=== PATIENT | female | born 1980 | race Caucasian/White ===

== ENCOUNTER → 2016-07-02 | Outpatient (CLI) | payer BC ==
[~2016-07-02] MED LIST: CETI10TA84 PO; CITA20TA9 PO; LABE200T24 PO; MAGN400T6 PO; METH250T21 PO; MTR600X PO; OXYC-57 PO; PRENTAB26 PO; PRLSR20 PO
[2016-07-02 13:16] LABS: URINE TOTAL PROTEIN 7.8 mg/dl (0-11.9)
[2016-07-02 13:33] LABS: CREATININE 0.6 mg/dl (0.6-1.2); URINE TOTAL PROTEIN CALC 140.4 mg/24 hr (0-149.1)
== END | disposition home or self-care (01) ==
LOC: C.LAB1850 12:08
PROVIDERS: ATTEND Obstetrics & Gynecology
DX: O16.2 Unspecified maternal hypertension, second trimester (principal)

== ENCOUNTER → 2016-07-11 | Outpatient (CLI) | payer BC ==
[2016-07-11 18:09] LABS: URINE APPEARANCE CLEAR (CLEAR); URINE BILIRUBIN NEG (NEG); URINE COLOR YELLOW; URINE EPITHELIAL CELL AUTO >30 /lpf (0-5); URINE NITRITE NEG (NEG); URINE PH 6.5 (4.5-7.5); URINE SPECIFIC GRAVITY 1.014 (1.000-1.030); UROBILINOGEN NEG (NEG)
[2016-07-11 18:12] LABS: MANUAL MICROSCOPIC REQUIRED? NO; REVIEW REQ? NO
== END | disposition home or self-care (01) ==
LOC: C.LABSPEC 17:30
PROVIDERS: ATTEND Obstetrics & Gynecology
DX: O16.3 Unspecified maternal hypertension, third trimester (principal)

== ENCOUNTER → 2016-07-25 | Outpatient (CLI) | payer BC ==
[2016-07-25 15:40] LABS: HEMATOCRIT 34.4 % (37-47)
[2016-07-25 17:20] LABS: GTGD 50 Grams
== END | disposition home or self-care (01) ==
LOC: C.LAB1850 13:52
PROVIDERS: ATTEND Obstetrics & Gynecology
DX: O16.3 Unspecified maternal hypertension, third trimester (principal); Z3A.00 Weeks of gestation of pregnancy not specified

== ENCOUNTER → 2016-08-02 | Outpatient (CLI) | payer BC | END | disposition home or self-care (01) | LOC: C.LAB1850 08:35 | PROVIDERS: ATTEND Obstetrics & Gynecology | DX: O28.9 Unspecified abnormal findings on antenatal screening of mother (principal); Z3A.00 Weeks of gestation of pregnancy not specified ==

== ENCOUNTER → 2016-09-12 | Outpatient (CLI) | payer BC | END | disposition home or self-care (01) | LOC: C.LABSPEC 17:27 | PROVIDERS: ATTEND Obstetrics & Gynecology | DX: O09.523 Supervision of elderly multigravida, third trimester (principal) ==

== ENCOUNTER 2016-09-28 13:08 | Outpatient (CLI) | payer BC ==
[~2016-09-28] VITALS: Ht 160 cm; Wt 126.0 kg
[~2016-09-28 13:08] MED LIST changes: -CETI10TA84 PO; -CITA20TA9 PO; -MAGN400T6 PO; -METH250T21 PO; -MTR600X PO; -OXYC-57 PO; -PRLSR20 PO
[2016-09-28] MEDS ORDERED: CITA20TA9 PO (14:46)
[2016-09-28 14:51] LABS: BASO % 0.2 %; BASO ABS # 0.02 K/uL (0-0.2); HEMATOCRIT 36.7 % (37-47); IG% 1.2 %; LYMPH % 19.8 %; LYMPH ABS # 1.95 K/uL (1.2-3.4); MEAN CELL VOLUME 82.5 fL (80-100); MEAN CORPUSCULAR HEMOGLOBIN 27.4 pg (25-34); MEAN PLATELET VOLUME 10.4 fL (7.4-10.4); MONO % 5.5 %; NEUT % 72.3 %; PLATELET COUNT 354 K/uL (130-400); RED BLOOD COUNT 4.45 M/uL (4.2-5.4); WHITE BLOOD COUNT 9.86 K/uL (4.8-10.8)
[2016-09-28 14:59] LABS: INR 0.9 (0.9-1.1); PARTIAL THROMBOPLASTIN RATIO 1.2; PROTHROMBIN TIME (PATIENT) 10.1 SECONDS (9.0-12.0)
[2016-09-28] MEDS ORDERED: METH250T21 PO (15:07)
[2016-09-28] MEDS ORDERED: MAGN400T6 PO (15:08)
[2016-09-28] MEDS ORDERED: CETI10TA84 PO (15:08)
[2016-09-28] MEDS ORDERED: PRLSR20 PO (15:08)
[2016-09-28 15:09] LABS: ALKALINE PHOSPHATASE 169 U/L (45-117); ALT/SGPT 15 U/L (12-78); AST/SGOT 20 U/L (15-37); CREATININE 0.69 mg/dl (0.60-1.20); URIC ACID 4.5 mg/dl (2.6-7.2)
[2016-09-28 15:22] LABS: COMPLETE YES; MEAN CORPUSCULAR HGB CONC 33.2 g/dl (32-36)
[2016-09-28 15:32] VITALS: Ht 160 cm; Wt 126.0 kg
[2016-10-04] MEDS ORDERED: OXYC-57 PO (07:27)
[2016-10-04] MEDS ORDERED: MTR600X PO (07:27)
== END 2016-09-28 15:45 | disposition home or self-care (01) ==
LOC: C.OPB 13:08 → C.LD 13:09 → C.OPB 15:45
PROVIDERS: ATTEND Obstetrics & Gynecology
DX: O16.3 Unspecified maternal hypertension, third trimester (principal); Z3A.38 38 weeks gestation of pregnancy

== ENCOUNTER 2016-10-01 06:50 | Inpatient (IN) | payer BC ==
--- NOTE | 2016-09-21 18:06 | HISTORY & PHYSICAL EXAMINATION ---
DATE OF ADMISSION: 10/01/2016 PRINCIPAL DIAGNOSES: Intrauterine at 39 weeks, prior section, history of chronic hypertension, undesired fertility and multiparity. PRINCIPAL PROCEDURE: Repeat low transverse cervical section and bilateral tubal ligation. HISTORY OF PRESENT ILLNESS: The patient is a 36-year-old 2, para 1-0-0-1 white female, EDC of 10/06/2016 who presents at 39 weeks for repeat section. First section was done for failure to progress following induction of labor at 37 weeks for hypertension. The patient's blood pressure has been controlled on methyldopa 250 mg. She is now scheduled for repeat section. has also been complicated by an abnormal echo which was repeated in 4 weeks and then was found to be normal except for mild ductal construction. The patient is requesting bilateral tubal ligation for multiparity and undesired fertility. She understands the risks of this procedure and the risks of the . She is willing to proceed. PAST MEDICAL HISTORY: Hypertension, anxiety, and asthma. PAST SURGICAL HISTORY: Brimson teeth and a section in 2012 for failure to progress, delivery of a 6 pound 1 ounce infant. ALLERGIES: AMOXICILLIN, SENSITIVITY WHICH CAUSES NAUSEA AND VOMITING. MEDICATIONS: Methyldopa 250 mg, Celexa, vitamin, Prilosec as needed and Zyrtec 10 mg as needed. OBSTETRICAL AND GYNECOLOGICAL HISTORY: Periods are every 28 days. No history of PID, VD or herpes. Pap smears have been within normal limits. One in 2013 delivery at 37-1/2 weeks, 6 pound 1 ounce viable female by section for failure to progress, no complications following the surgery. : Blood type is O positive, antibody screen is negative. Rubella is immune. RPR is nonreactive. Hepatitis is negative. HIV is negative. Chlamydia and GC are negative. Hemoglobin at 28 weeks was 11.2, hematocrit 34.4. Ultrasound at 20 weeks was incomplete for cardiac anatomy. The reading on the initial echo was a questionable ductal arch constriction and widely patent aortic arch, the repeat 4 weeks later showed a persistent mild ductal constriction, otherwise was normal. Resting anatomy was complete and normal. Growth scans showed estimated weight of 65th percentile, abdominal circumference was 68th percentile, AFIs were within normal limits. NSTs have been reactive. PHYSICAL EXAMINATION: VITAL SIGNS: Blood pressure is 118/90. GENERAL: She is a well-developed, well-nourished white female, in no distress at this time. LUNGS: Clear to auscultation. HEART: Regular rate and rhythm. No murmurs or gallops. ABDOMEN: Gravid and obese. There is no hepatosplenomegaly or masses palpable, fundal height is 40 cm. She has a well-healed low transverse skin incision. PELVIC: Deferred. EXTREMITIES: With trace edema today. ASSESSMENT: A 36-year-old repeat for repeat section at 39 weeks, history of hypertension. With a history of hypertension, she also has undesired fertility and requesting bilateral tubal ligation. All questions were answered. The patient is willing to proceed with both procedures. Please see the orders for further directions. CLAUDIA
[~2016-10-01] VITALS: Ht 160 cm; Wt 126.5 kg
[2016-10-01] VITALS (10 sets, daily range): BP systolic 120–136; BP diastolic 77–85; PULSE 74–78; TEMP 36.6–37.3; O2SAT 94–100; Ht 160 cm; Wt 126.5 kg
[~2016-10-01 06:50] MED LIST changes: +CEFAZOLIN IV 3,000 MG in DEXTROSE 5% 50ML IV SCH; +CETI10TA84 PO; +CITA20TA9 PO; +CITRIC ACID/SODIUM CITRATE 15 ML UDC PO SCH; -LABE200T24 PO; +LACTATED RINGER'S 1000ML 1,000 ML IV SCH; +MAGN400T6 PO; +METH250T21 PO; +PRLSR20 PO
[2016-10-01 08:06] LABS: BASO % 0.3 %; BASO ABS # 0.03 K/uL (0-0.2); COMPLETE YES; EOS % 0.9 %; HEMATOCRIT 38.6 % (37-47); IG% 1.5 %; LYMPH % 21.8 %; MEAN CELL VOLUME 82.5 fL (80-100); MEAN CORPUSCULAR HEMOGLOBIN 27.1 pg (25-34); MEAN CORPUSCULAR HGB CONC 32.9 g/dl (32-36); MEAN PLATELET VOLUME 10.6 fL (7.4-10.4); MONO % 7.2 %; NEUT % 68.3 %; PLATELET COUNT 393 K/uL (130-400); RED BLOOD COUNT 4.68 M/uL (4.2-5.4)
--- NOTE | 2016-10-01 08:32 | History & Physical Bridge Note ---
H&P Re-Evaluation Bridge Note: I have examined the patient, reviewed the History & Physical and in the interval since the performance of the History & Physical I have noted the following changes of clinical significance: No changes noted
[2016-10-01] MEDS ORDERED: SODIUM CHLORIDE 0.9% 1000ML 1,000 ML IV PRN (09:25)
[2016-10-01] MEDS ORDERED: NALOXONE HCL INJ 0.08 MG in SYRINGE 1.8 ML IV PRN (09:25)
[2016-10-01] MEDS ORDERED: NALOXONE HCL INJ 1 MG in SODIUM CHLORIDE 0.9% 1000ML 1,000 ML IV PRN (09:25)
[2016-10-01] MEDS ORDERED: PROMETHAZINE HCL INJ 6.25 MG in SODIUM CHLORIDE 0.9% 50ML 50 ML IV PRN (09:30)
[2016-10-01] MEDS ORDERED: MoRPHine SULFATE 2 MG/ML CARP IV PRN (09:30)
[2016-10-01] MEDS ORDERED: MoRPHine SULFATE PF 1 MG/ML 10 ML AMP/VIAL EPI PRN (09:30)
[2016-10-01] MEDS ORDERED: NALBUPHINE HCL INJ 10 MG/ML AMP IV PRN (09:30)
[2016-10-01] MEDS ORDERED: NALOXONE HCL 0.4 MG/1 ML VIAL/CARP IV PRN (09:30)
[2016-10-01] MEDS ORDERED: MEPERIDINE HCL 25 MG/ML CARP IV PRN (09:30)
[2016-10-01] MEDS ORDERED: EpHEDrine SULFATE INJ 50 MG/ML AMP IV PRN (09:30)
[2016-10-01] MEDS ORDERED: NO NARCOTICS OR SEDATIVES SCH (09:30)
[2016-10-01] MEDS ORDERED: DiphenhydrAMINE HCL 50 MG/ML VIAL IV PRN ×2 (09:30)
[2016-10-01] MEDS ORDERED: ONDANSETRON INJ 2 MG/ML 2 ML VIAL IV PRN (09:30)
[2016-10-01] MEDS ORDERED: FENTANYL CITRATE INJ 50 MCG/1 ML 2 ML VIAL ONE (09:31)
[2016-10-01] MEDS ORDERED: MoRPHine SULFATE PF 1 MG/ML 10 ML AMP/VIAL ONE (09:31)
[2016-10-01] MEDS ORDERED: OXYTOCIN INJ 10 UNITS/ML VIAL ONE (09:31)
[2016-10-01] MEDS ORDERED: ONDANSETRON INJ 2 MG/ML 2 ML VIAL ONE (09:31)
[2016-10-01] MEDS ORDERED: KETOROLAC TROMETHAMINE 30 MG/ML VIAL ONE (09:31)
[2016-10-01] MEDS ORDERED: PHENYLEPHRINE 100MCG/ML 5ML SYR ONE (10:36)
[2016-10-01] MEDS ORDERED: OXYTOCIN INJ 0.02 UNITS in LACTATED RINGER'S 1000ML 1 ML IV SCH (11:27)
[2016-10-01] MEDS ORDERED: BENZOCAINE 20% AER SPR 82.5 GM CAN EXT PRN (11:30)
[2016-10-01] MEDS ORDERED: HYDROCORTISONE ACETATE 25 MG SUPP PR PRN (11:30)
[2016-10-01] MEDS ORDERED: LANOLIN OINT EXT PRN ×2 (11:30)
[2016-10-01] MEDS ORDERED: SUPERCREAM 0.870 % 15GM JAR EXT PRN (11:30)
--- NOTE | 2016-10-01 11:35 | [facility] Operative Report ---
Operative Report Operative Date Oct 01, 2016. Pre-Operative Diagnosis Previous Caesarean Section; Pt Desires Repeat Caesarean Section and Tubal Ligation. Post-Operative Diagnosis . Same plus delivery of viable male infant Procedure(s) Performed Repeat low transverse section and bilateral tubal ligation Surgeon Dr. Kelsey Field Control Inspector Surgeon(s) Dr. Page Estimated Blood Loss 500 CC Findings Gravid uterus consistent with term in size. Bilateral ovaries and tubes are grossly normal. Fluids 1200 Specimens Placenta (Hold) Cord Blood Portions of Left and Right Fallopian Tubes Drains Briseno to straight drainage. Clear urine at end of case Anesthesia spinal Complication(s) None Disposition L&D Indications This is a 36-year-old 001 white female who presents for repeat section and bilateral tubal ligation because of unwanted fertility. EDC is 10/2016. has been complicated by essential hypertension which has been well controlled with Aldomet. She is requesting repeat section. Prior section was done for nonreassuring heart rate pattern. She is also requesting bilateral tubal ligation for unwanted fertility. She understands the risk of both of these procedure her questions have been answered to her satisfaction and she is willing to proceed. Description of Procedure The patient received adequate subarachnoid block she was prepped and draped in the usual sterile fashion. A low transverse skin incision was made with the scalpel and carried to the fashion when the the same scalpel. The fascial incision was then extended in a transverse fashion with the Motta scissors. The edges were then grasped with Durham clamps and the underlying rectus muscles were bluntly and sharply dissected off of the overlying fascia. The rectus muscles were divided on the midline and the underlying peritoneum elevated and entered bluntly. The bladder was then taken down off the anterior surface of the uterus and placed behind the bladder blade. The lower uterine segment of the uterus is then entered with the scalpel and extended transversely. Membranes were ruptured for thin meconium stained fluid. The infant was delivered from the vertex presentation with moderate fundal pressure loose nuchal cord was reduced after delivery of the head. The rest of the infant delivered without difficulty and was handed off to Dr. Sauceda who was in attendance as anode machine operator. This was done after the cord was clamped and cut there was. There is vigorous crying and the was moving all 4 limbs. The placenta was then manually removed. The uterus exteriorized and covered with a clean lap sponge. The uterine cavities was explored and found to be free of any placental tissue or membranes. The uterus is then closed in 2 layers in a running locking imbricating fashion with 0 Monocryl suture. Hemostasis was noted to be excellent. Attention was then turned to the tubal ligation. The left fallopian tube was identified and followed to its fimbriated and. A knuckle of tube was developed with a Garland clamp this was tied with 30 plain catgut. A second suture ligature of 30 plain catgut was used to reinforce the first. The knuckle of tube was then removed with Metzenbaum scissors and the edges of the remaining tube cauterized the right fallopian tube was then identified and followed to is fimbriated end. It was grasped in the midportion with a Zacarias clamp. A knuckle of tube was then developed with a tie of 30 plain catgut followed by a suture ligature of the same suture. The ends of the remaining tube were cauterized with the Bovie. Hemostasis noted be excellent at both tubal sites and at the uterine incision site. After irrigating the posterior cul-de-sac and the anterior cul-de-sac, the uterus was placed gently back in the abdominal cavity. Both tubal sites were examined once more intense and continue to have excellent hemostasis. The gutters were explored and were noted to be free of any tissue or clots. The rectus muscles were then brought together in the midline with individual stitches of 0 Monocryl. The fascia was closed in a running fashion with 0 Vicryl. Radha's fascia was brought together to decrease space with 3-0 chromic. The adipose layer was then irrigated with normal saline. Skin edges were reapproximated using a subcuticular stitch of 4-0 Vicryl. Urine was clear at the end of the case. Mother and infant were doing well after delivery. I attest to the content of the Intraoperative Record and any orders documented therein. Any exceptions are noted below.
--- NOTE | 2016-10-01 11:41 | Medical Student: [facility] ---
Immediate Operative Summary Operative Date Oct 01, 2016. Pre-Operative Diagnosis Term at 39+2 weeks Post-Operative Diagnosis Same as above. Procedure(s) Performed Low cervical transverse , repeat c/s x1, resulting in the delivery of a live male . Bilateral tubal ligation. Surgeon Dr. Kelsey Slot Tag Inserter Surgeon(s) Dr. Schneider Estimated Blood Loss 500cc Findings Delivery of a viable male at 1023. Apgars 9/10. Normal appearing Fallopian tubes and ovaries bilaterally. Fluids (cc crystalloids) 1200cc Specimens Placenta Cord blood Left and right Fallopian tubes Drains Briseno Anesthesia Spinal Complication(s) None Disposition L&D
[2016-10-01] MEDS: OXYTOCIN INJ 20 UNITS in LACTATED RINGER'S 1000ML 1,000 ML IV SCH ×3 (12:21→18:06)
[2016-10-01] MEDS ORDERED: METHYLERGONOVINE MALEATE 0.2 MG/ML AMP ONE (13:07)
[2016-10-01] MEDS ORDERED: METHYLERGONOVINE MALEATE 0.2 MG/ML AMP IM SCH (13:15)
[2016-10-01] MEDS: LACTATED RINGER'S 1000ML 500 ML IV PRN ×2 (14:57→23:24)
--- NOTE | 2016-10-01 15:23 | Anesthesiology Progress Note ---
Anesthesia Post Op Note Date & Time Oct 01, 2016 at 15:23 Vital Signs Pain Intensity: 4.0 Notes Mental Status: alert / awake / arousable, participated in evaluation Pt Amnestic to Procedure: Yes Nausea / Vomiting: adequately controlled Pain: adequately controlled Airway Patency, RR, SpO2: stable & adequate BP & HR: stable & adequate Hydration State: stable & adequate Neuraxial Anesthesia: was administered, sensory block resolved Anesthetic Complications: no major complications apparent
[2016-10-01] MEDS: KETOROLAC TROMETHAMINE 30 MG/ML VIAL IV. PRN ×2 (17:05→23:00)
[2016-10-01 19:36] LABS: HEMATOCRIT 30.3 % (37-47)
[2016-10-01] MEDS: METHYLDOPA 250 MG TAB PO SCH (21:26)
[2016-10-01] MEDS: DOCUSATE SODIUM 100 MG CAP PO SCH (21:26)
[2016-10-02] VITALS (10 sets, daily range): BP systolic 109–134; BP diastolic 69–86; PULSE 64–77; TEMP 36.6–36.8; O2SAT 94–99
[2016-10-02] MEDS: OXYTOCIN INJ 20 UNITS in LACTATED RINGER'S 1000ML 1,000 ML IV SCH (02:03)
[2016-10-02] MEDS ORDERED: ONDANSETRON INJ 2 MG/ML 2 ML VIAL IV PRN (05:00)
[2016-10-02] MEDS ORDERED: KETOROLAC TROMETHAMINE 30 MG/ML VIAL IV. PRN (05:00)
[2016-10-02] MEDS ORDERED: DC INTRASPINAL MORPHINE ONE (05:00)
[2016-10-02] MEDS ORDERED: ZOLPIDEM TARTRATE 5 MG TAB PO PRN (05:00)
[2016-10-02] MEDS ORDERED: DiphenhydrAMINE HCL 50 MG/ML VIAL IV PRN (05:00)
[2016-10-02 06:35] LABS: HEMATOCRIT 29.3 % (37-47); MEAN CORPUSCULAR HEMOGLOBIN 26.9 pg (25-34); MEAN CORPUSCULAR HGB CONC 32.4 g/dl (32-36); MEAN PLATELET VOLUME 9.7 fL (7.4-10.4); PLATELET COUNT 279 K/uL (130-400); RED BLOOD COUNT 3.53 M/uL (4.2-5.4); WHITE BLOOD COUNT 11.99 K/uL (4.8-10.8)
[2016-10-02 07:05] LABS: BASO % 0.2 %; BASO ABS # 0.02 K/uL (0-0.2); COMPLETE YES; EOS % 0.6 %; IG% 0.8 %; LYMPH ABS # 1.68 K/uL (1.2-3.4); MONO % 6.3 %; NEUT % 78.1 %
--- NOTE | 2016-10-02 07:11 | OB/GYN Progress Note ---
TRANSMISSION MAINTENANCE SUPERVISOR Progress Note Date of Service Oct 02, 2016. Subjective conversation w/ patient, conversation w/ family, physical exam, chart review, lab review Ambulation: limited ambulation (not walking yet) Voiding: no voiding problems (but moura just removed this am) Passing Gas: Yes Diet Tolerance: Regular Diet (crackers so far) Lochia: Small Feeding Type: Breast Feeding Review of Systems Constitutional: No fever, No chills Respiratory: No cough, No shortness of breath Cardiac: No chest pain Abdomen: + pain (cramping), No nausea, No vomiting, No diarrhea Objective Vital Signs Date Time Temp Pulse Resp B/P (MAP) Pulse Ox O2 Delivery O2 Flow Rate FiO2 10/02/16 05:00 36.6 76 20 134/86 (102) 99 Room Air 10/02/16 04:45 20 99 10/02/16 03:45 16 99 10/02/16 02:45 18 97 10/02/16 01:45 16 98 10/02/16 00:44 16 94 10/01/16 23:45 18 94 10/01/16 23:00 37.3 78 20 134/82 (99) 97 Room Air 10/01/16 23:00 97 Room Air 10/01/16 22:45 20 97 10/01/16 21:45 20 96 10/01/16 20:45 20 96 10/01/16 19:35 99 Room Air 10/01/16 19:35 36.6 77 20 120/77 (91) 99 Room Air 10/01/16 19:35 20 99 10/01/16 18:45 18 100 10/01/16 17:45 18 99 10/01/16 16:45 18 100 10/01/16 15:45 96 Room Air 10/01/16 15:45 96 Room Air 10/01/16 15:45 18 96 10/01/16 15:45 36.7 74 18 136/85 (102) 96 Room Air Physical Exam General Appearance: WELL-APPEARING, WD/WN, NO APPARENT DISTRESS Respiratory/Chest: lungs clear, normal breath sounds Cardiovascular: regular rate, rhythm, no murmur Abdomen: normal bowel sounds, soft, + tenderness (minimal low midline) Fundus: Firm, Tender Incision Description: Clean, Dry & Intact (no incision erythema) Laboratory Results Last 24 Hours Test 10/01/16 07:11 10/01/16 18:20 10/02/16 06:11 White Blood Count 11.00 K/uL 11.99 K/uL Red Blood Count 4.68 M/uL 3.53 M/uL Hemoglobin 12.7 g/dL 9.8 g/dL 9.5 g/dL Hematocrit 38.6 % 30.3 % 29.3 % Mean Corpuscular Volume 82.5 fL 83.0 fL Mean Corpuscular Hemoglobin 27.1 pg 26.9 pg Mean Corpuscular Hemoglobin Concent 32.9 g/dl 32.4 g/dl Platelet Count 393 K/uL 279 K/uL Mean Platelet Volume 10.6 fL 9.7 fL Neutrophils (%) (Auto) 68.3 % 78.1 % Lymphocytes (%) (Auto) 21.8 % 14.0 % Monocytes (%) (Auto) 7.2 % 6.3 % Eosinophils (%) (Auto) 0.9 % 0.6 % Basophils (%) (Auto) 0.3 % 0.2 % Neutrophils # (Auto) 7.52 K/uL 9.37 K/uL Lymphocytes # (Auto) 2.40 K/uL 1.68 K/uL Monocytes # (Auto) 0.79 K/uL 0.76 K/uL Eosinophils # (Auto) 0.10 K/uL 0.07 K/uL Basophils # (Auto) 0.03 K/uL 0.02 K/uL RDW Standard Deviation 45.1 fL 45.4 fL RDW Coefficient of Variation 15.0 % 15.0 % Immature Granulocyte % (Auto) 1.5 % 0.8 % Immature Granulocyte # (Auto) 0.16 K/uL 0.09 K/uL Assessment and Plan Day Number: 1 Continue Routine Care: Resident Physician Supervision Note: I was present with Dr. Schneider during the history and exam. I discussed the case with the resident and agree with the findings and plan as documented in the note. Any exceptions or clarifications are listed here: [None] Documented By: Anisha Miller Resident Physician Supervision Note: I was present with [Name of resident] during the history and exam. I discussed the case with the resident and agree with the findings and plan as documented in the note. Any exceptions or clarifications are listed here: [None ] Documented By: Anisha Miller 36F s/p scheduled , now PPD #1. - GBS negative. Blood type O positive. Rubella immune. - Vital signs reviewed and stable. - Pain controlled with morphine, then toradol. - Minimal (B) leg swelling. No tenderness on calf palpation. (+) SCDs. - Encourage breast feeding. - Hemoglobin: 12.7 --> Today 9.5. Bleeding has improved. Rec'd start daily iron x 6 wks, along with PNV. Continue to monitor clinically. - Encourage ambulation. Continue routine post care. Likely home tomorrow. - Pt agreed with above plan, all current questions answered. Lio Schneider MD, PGY1 Leather Stamper Tracking Resident Involvement: Resident Care Provided Care Provided: OB Delivery (morning rounding)
[2016-10-02] MEDS: FERROUS SULFATE 325 MG TAB PO SCH (07:28)
[2016-10-02] MEDS: CITALOPRAM 20 MG TAB PO SCH (07:28)
[2016-10-02] MEDS: PRENATAL VITAMIN TAB PO SCH (07:28)
[2016-10-02] MEDS: DOCUSATE SODIUM 100 MG CAP PO SCH ×2 (07:29→20:56)
[2016-10-02] MEDS: METHYLDOPA 250 MG TAB PO SCH ×2 (07:29→20:57)
[2016-10-02] MEDS: OXYCODONE/ACETAMINOPHEN 5-325 TAB PO PRN ×4 (07:29→18:48)
[2016-10-02] MEDS ORDERED: MAGNESIUM OXIDE 400 MG TAB PO SCH ×2 (08:00→20:00)
[2016-10-02] MEDS ORDERED: PRENATAL VITAMIN TAB PO SCH (08:00)
[2016-10-02] MEDS ORDERED: CETIRIZINE HCL 10 MG TAB PO SCH ×2 (08:00→20:00)
[2016-10-02] MEDS ORDERED: NURSING VERBAL MED ORDER ONE (08:15)
[2016-10-02] MEDS: IBUPROFEN 600 MG TAB PO PRN ×2 (12:27→18:53)
[2016-10-02] MEDS: MAGNESIUM OXIDE 400 MG TAB PO SCH (20:57)
[2016-10-02] MEDS: CETIRIZINE HCL 10 MG TAB PO SCH (20:57)
[2016-10-03] MEDS: IBUPROFEN 600 MG TAB PO PRN ×4 (00:05→16:32)
[2016-10-03] MEDS: OXYCODONE/ACETAMINOPHEN 5-325 TAB PO PRN ×4 (00:06→16:33)
--- NOTE | 2016-10-03 06:57 | OB/GYN Progress Note ---
FISH AGENT Progress Note Date of Service Oct 03, 2016. Subjective conversation w/ patient, conversation w/ family, physical exam, chart review, lab review Ambulation: ambulating normally Voiding: no voiding problems Passing Gas: Yes (No BM yet) Diet Tolerance: Regular Diet Lochia: Small Feeding Type: Breast Feeding Pain: says lower abdomen is "sore" but denies pain Review of Systems Constitutional: No fever, No chills Respiratory: No cough Cardiac: No chest pain Abdomen: + pain (soreness), No nausea, No vomiting, No diarrhea Female : No dysuria Objective Vital Signs Date Time Temp Pulse Resp B/P (MAP) Pulse Ox O2 Delivery O2 Flow Rate FiO2 10/02/16 23:50 36.8 64 20 133/84 (100) 97 Room Air 10/02/16 23:50 97 Room Air 10/02/16 20:40 75 109/69 (82) 10/02/16 16:00 36.6 77 18 118/74 (89) 10/02/16 16:00 Room Air 10/02/16 07:45 36.7 74 16 119/78 (92) 99 Room Air 10/02/16 07:30 Room Air Physical Exam General Appearance: WELL-APPEARING, WD/WN, NO APPARENT DISTRESS Respiratory/Chest: lungs clear, normal breath sounds Cardiovascular: regular rate, rhythm, no murmur Abdomen: normal bowel sounds, non tender, soft Fundus: Firm Incision Description: Clean, Dry & Intact (incision site no erythema or d/c) Extremities: normal range of motion (no difficulty with (B)UE ROM), non-tender , no calf tenderness, + swelling (R>L hand swelling, less so (B) ankle) Laboratory Results Last 24 Hours Test 10/03/16 06:00 Assessment and Plan Post-Op Day Number: 2 Continue Routine Care: 36yo s/p scheduled , now PPD #2. - Blood type O pos. GBS negative. Rubella immune. - Vital signs reviewed and stable. - Pain controlled with motrin & percocet. - No leg swelling or tenderness on calf palpation. Encourage ambulation. - Encourage breast feeding. - Hemoglobin: 12.7, 9.5. Bleeding has improved. On supplemental iron. Continue to monitor clinically. -Continue routine post delivery care. - Pt agreed with above plan, all current questions answered. Lio Schneider MD, PGY1 Weld Inspector Physician Supervision Note: I was present with Dr. Schneider during the history and exam. I discussed the case with the resident and agree with the findings and plan as documented in the note. Any exceptions or clarifications are listed here: POD#2, doing well. Continue routine postop care. Documented By: Nela Black Resident Tracking Resident Involvement: Resident Care Provided Care Provided: OB Delivery (morning rounds)
[2016-10-03 07:28] LABS: HEMATOCRIT 28.1 % (37-47)
[2016-10-03 07:41] VITALS: BP 119/70; PULSE 80; TEMP 36.5; O2SAT 99
[2016-10-03] MEDS: DOCUSATE SODIUM 100 MG CAP PO SCH ×2 (08:55→20:17)
[2016-10-03] MEDS: PRENATAL VITAMIN TAB PO SCH (08:55)
[2016-10-03] MEDS: FERROUS SULFATE 325 MG TAB PO SCH (08:55)
[2016-10-03] MEDS: METHYLDOPA 250 MG TAB PO SCH ×2 (08:55→20:17)
[2016-10-03] MEDS: CITALOPRAM 20 MG TAB PO SCH (08:55)
--- NOTE | 2016-10-03 09:13 | Medical Student: [facility] ---
Med Student LITHOGRAPHIC PRESS FEEDER Progress Nt Date of Service Oct 03, 2016. Subjective conversation w/ patient Ambulation: ambulating normally Voiding: no voiding problems Passing Gas: Yes Diet Tolerance: Regular Diet Lochia: Small Feeding Type: Breast Feeding (pumping) Pain: 04/10, took a percocet/motrin at 4am. Notes: Pt was seen at the bedside this morning. Her bleeding is the same as it was yesterday. She reports no complaints. Review of Systems Constitutional: No fever, No chills Respiratory: No shortness of breath, No dyspnea on exertion, No dyspnea at rest Cardiac: No chest pain Breast: No problem reported Abdomen: No pain, No nausea, No vomiting, No diarrhea, No constipation Female : No dysuria Objective Vital Signs Date Time Temp Pulse Resp B/P (MAP) Pulse Ox O2 Delivery O2 Flow Rate FiO2 10/03/16 07:41 36.5 80 18 119/70 (86) 99 Room Air 10/03/16 07:30 Room Air 10/02/16 23:50 36.8 64 20 133/84 (100) 97 Room Air 10/02/16 23:50 97 Room Air 10/02/16 20:40 75 109/69 (82) 10/02/16 16:00 36.6 77 18 118/74 (89) 10/02/16 16:00 Room Air Physical Exam General Appearance: WELL-APPEARING, WD/WN, NO APPARENT DISTRESS Respiratory/Chest: chest non-tender, lungs clear, normal breath sounds, no respiratory distress, no accessory muscle use Cardiovascular: regular rate, rhythm, no gallop, no murmur Abdomen: non tender, soft Fundus: Firm, Relation to Umbilicus (four fingerwidths below the umbilicus) Incision Description: Clean, Dry & Intact Extremities: no calf tenderness, + swelling (calves seemed firm) Laboratory Results Last 24 Hours Test 10/03/16 07:17 Hemoglobin 9.1 g/dL Hematocrit 28.1 % Assessment and Plan Post-Op Day Number: 2 Continue Routine Care: Rebecca is a 36 year old female who presented two days ago at 39+2 wks GA for scheduled c/s. Labs: O+ blood type, rubella immune, GBS negative Hct/Hb: 30.3/9.8 --> 29.3/9.5 Vital signs reviewed and stable. Continue routine care post c/s Encourage ambulation and fluids. Continue . Pain control prn.
--- NOTE | 2016-10-03 10:27 | Anesthesiology Progress Note ---
Anesthesia Post Op Note Date & Time Oct 03, 2016 at 10:27 Vital Signs Pain Intensity: 3.0 Vital Signs Past 12 Hours Date Time Temp Pulse Resp B/P (MAP) Pulse Ox O2 Delivery O2 Flow Rate FiO2 10/03/16 07:41 36.5 80 18 119/70 (86) 99 Room Air 10/03/16 07:30 Room Air 10/02/16 23:50 36.8 64 20 133/84 (100) 97 Room Air 10/02/16 23:50 97 Room Air Notes Mental Status: alert / awake / arousable, participated in evaluation Pt Amnestic to Procedure: Yes Nausea / Vomiting: adequately controlled Pain: adequately controlled Airway Patency, RR, SpO2: stable & adequate BP & HR: stable & adequate Hydration State: stable & adequate Neuraxial Anesthesia: was administered, sensory block resolved Anesthetic Complications: no major complications apparent
[2016-10-03 15:30] VITALS: BP 119/80; PULSE 78; TEMP 36.6
[2016-10-03 20:00] VITALS: BP 115/68
[2016-10-03] MEDS: MAGNESIUM OXIDE 400 MG TAB PO SCH (20:17)
[2016-10-03] MEDS: CETIRIZINE HCL 10 MG TAB PO SCH (20:17)
[2016-10-03 23:20] VITALS: O2SAT 98
[2016-10-04] MEDS: IBUPROFEN 600 MG TAB PO PRN (05:41)
[2016-10-04] MEDS: OXYCODONE/ACETAMINOPHEN 5-325 TAB PO PRN (05:42)
--- NOTE | 2016-10-04 06:53 | OB/GYN Progress Note ---
REGRIND MILL OPERATOR Progress Note Date of Service Oct 04, 2016. Subjective conversation w/ patient, conversation w/ family Ambulation: ambulating normally Voiding: no voiding problems Passing Gas: Yes (and + BM) Diet Tolerance: Regular Diet Lochia: Small (says had two small clots overnight) Feeding Type: Breast Feeding Pain: "Soreness" in lower abdomen Review of Systems Constitutional: No fever, No chills Respiratory: No cough, No shortness of breath Cardiac: No chest pain Abdomen: No nausea, No vomiting, No diarrhea Female : No dysuria Objective Vital Signs Date Time Temp Pulse Resp B/P (MAP) Pulse Ox O2 Delivery O2 Flow Rate FiO2 10/03/16 23:20 98 Room Air 10/03/16 20:00 115/68 (84) 10/03/16 15:30 36.6 78 18 119/80 (93) Room Air 10/03/16 15:30 Room Air 10/03/16 07:41 36.5 80 18 119/70 (86) 99 Room Air 10/03/16 07:30 Room Air Physical Exam General Appearance: WELL-APPEARING, WD/WN, NO APPARENT DISTRESS Respiratory/Chest: lungs clear, normal breath sounds Cardiovascular: regular rate, rhythm, no murmur Abdomen: normal bowel sounds, non tender, soft Fundus: Firm, Tender (minimal), Relation to Umbilicus (approx 4-5 fingers below umbilicus) Extremities: normal range of motion, non-tender, no calf tenderness, + pedal edema (minimal (B) pedal edema, improving), + swelling (minimal R>L hand edema, not forearm (B)) Laboratory Results Last 24 Hours Test 10/03/16 07:17 Hemoglobin 9.1 g/dL Hematocrit 28.1 % Assessment and Plan Post-Op Day Number: 3 Continue Routine Care: 36yo s/p scheduled repeat and tubal ligation , now PPD #3. - Blood type O pos. GBS negative. Rubella immune. - Vital signs reviewed and stable. - Pain controlled with motrin & percocet. - Minimal foot swelling and no tenderness on calf palpation. Encourage ambulation. - Encourage breast feeding. - Hemoglobin: 12.7, 9.5, 9.1. Bleeding has improved overall. On supplemental iron. Continue to monitor clinically. - Continue routine post delivery care. Pt says she'd like to go home today. - Pt agreed with above plan, all current questions answered. Lio Schneider MD, PGY1 Parts Cataloguer Physician Supervision Note: I interviewed and examined the patient. Discussed with Dr. Schneider and agree with findings and plan as documented in the note. Any exceptions or clarifications are listed here: Patient desires d/c. Instructions and Rx given, f/u in 6 weeks Documented By: Thom Ledemsa Resident Tracking Resident Involvement: Resident Care Provided Care Provided: OB Delivery (morning rounds)
--- NOTE | 2016-10-04 06:54 | Discharge Instructions ---
Discharge Instructions Date of Service Oct 04, 2016. Admission Reason for Admission: Previous Section, Desires Sterilization Discharge Discharge Diagnosis / Problem: Recovery from Discharge Goals Goal(s): Routine recovery after Medications Continue Dispensed Medications: supercream, dermaplast, tucks, lansinoh Activity Recommendations Activity Limitations: per Instructions/Follow-up section . Instructions / Follow-Up Instructions / Follow-Up ACTIVITY RECOMMENDATIONS: * Gradual return to full activity over the next 2-3 weeks. * No lifting - nothing heavier than baby over the next 2-3 weeks. * Do not engage in vigorous exercise, sexual activity or sports until cleared by your physician. * Do not drive or operate any motorized equipment until cleared by your physician. * You may shower/bathe daily. MEDICATIONS: For discomfort or pain, you may use Acetaminophen (Tylenol), Ibuprofen (Advil), or Naproxen (Aleve) following the package directions. For constipation you may use Colace following the package directions. BREAST CARE: If you are not breast feeding: * Wear a supportive bra 24 hours a day for one to two weeks. * Avoid stimulating your breasts and nipples as much as possible during the first few weeks after delivery. * When taking a shower, have the warm water hit your back, not breasts. * When your breasts feel full, apply ice packs. Usually three to four times a day helps ease the discomfort. * Take a mild pain medication (Tylenol / Motrin) when you are uncomfortable. If breast feeding: * Use breast milk to lubricate nipples. Lansinoh cream may be used for sore nipples. You do not need to remove cream prior to breast feeding. If using a different brand of cream, check the label for directions regarding removal of cream prior to nursing. * Wear a supportive bra. * If having problems with breasts or breast feeding, call a systems management consultant or your health care provider. SPECIAL CARE INSTRUCTIONS: When you are discharged from the hospital, it is important for you to follow the instructions listed below: * During the first week at home, you should be able to care for yourself and your baby. In addition, the usual light household activities are encouraged. * Limit your activities to the way you feel. Do not try to clean the house or move furniture. Be sensible. * If you actively engage in sports and have done so up until the time of your delivery, you may resume these activities as soon as you feel able. This may take up to one month or even longer. Use good judgment. * Continue to take your vitamins for at least six weeks after the of your baby. * Your diet need not be limited unless you were on a special diet before your delivery. Breast-feeding mothers need around 2500 calories per day and at least 64-80 ounces of fluid per day (8 to 10 glasses). * You should eat foods from the four major food groups. Crash diets or fad diets are to be avoided. Eating lean meats, fresh fruits and vegetables, low-fat dairy products, high fiber foods and a regular exercise program, will help you get back to your pre- weight without putting your health at risk. * Constipation is sometimes a problem after delivery. Take a mild laxative as needed. If breast feeding, Milk of Magnesia is acceptable to use. You may use a suppository or Fleets enema. * A daily shower or tub bath is suggested. Wash incision daily with warm soapy water and pat dry. It doesn't need to be covered unless drainage is present. * A bloody vaginal discharge will usually continue until around four weeks . A small amount of bleeding may continue for as long as six weeks. Vaginal discharge changes from the bright red bleeding after delivery to pink then brownish and finally yellowish-pink before becoming white and disappearing. * Bleeding may increase with activity. Your first period may come in 4-8 weeks. If you are breast feeding, your period may be delayed even longer. * [place] (sex) can begin whenever both you and your partner feel comfortable and do not have any form of genital infection. It is recommended that you wait at least six weeks for internal and external healing to occur. If you have questions, please talk to your health care practitioner. A condom should be used to prevent infection and . * Foreplay, gentle intercourse and lubrication is very important the first several times to prevent pain. A water-based lubricant such as K-Y jelly or Astroglide may be used. * If you have RH negative blood and your baby is RH positive, you will receive RHOGAM by injection prior to discharge. The nurse will give you a card to keep with you that has the date and place that you received RHOGAM after delivery. * During your care, you had a Rubella screen done to check for the presence of rubella antibodies in your blood. If your test was negative, you will receive a Rubella vaccine prior to discharge. This vaccine may cause a fever, soreness at the injection site and flu-like symptoms. If these symptoms persist, notify your health care practitioner. is not advised for one month after a Rubella vaccine. * Verbalizes understanding of car seat law as reviewed with patient nursing. * Car Seat hand-out given and reviewed with patient by nursing. * Shaken baby information reviewed with patient by nursing. Call you doctor if: * Heavy bleeding (saturating several pads an hour) or passing clots the size of your fist. * A fever >101 degrees F (38.3 degrees C) on two occasions four hours apart and /or chills. * Unusual pain in the pelvic or vaginal areas. * Call the doctor for any increased redness, drainage or swelling around the incision and any pain unrelieved by prescribed pain medication. * "Baby Blues" lasting longer than two weeks. If you have any questions or concerns, call your health care practitioner at . FOLLOW UP VISIT: * Please call the office at to schedule a 6 week examination. It is important you keep this appointment. It is important for you to make arrangements for either yearly or twice yearly check-ups thereafter. Current Hospital Diet Patient's current hospital diet: Regular OB Diet Discharge Diet Recommended Diet: Regular OB Diet Procedures Procedures Performed: Live Male @ 1023 Pending Studies Studies pending at discharge: no Medical Emergencies . Who to Call and When: Medical Emergencies: If at any time you feel your situation is an emergency, please call [phone] immediately. . Non-Emergent Contact Non-Emergency issues call your: [facility] . . "Provider Documentation" section prepared by Lio Schneider. . VTE Core Measure Inpt VTE Proph given/why not?: SCD's
[2016-10-04] MEDS ORDERED: OXYC-57 PO (07:27)
[2016-10-04] MEDS ORDERED: MTR600X PO (07:27)
[2016-10-04 07:30] VITALS: BP 138/86; PULSE 72; TEMP 36.4
[2016-10-04] MEDS: FERROUS SULFATE 325 MG TAB PO SCH (08:23)
[2016-10-04] MEDS: DOCUSATE SODIUM 100 MG CAP PO SCH (08:23)
[2016-10-04] MEDS: PRENATAL VITAMIN TAB PO SCH (08:23)
[2016-10-04] MEDS: CITALOPRAM 20 MG TAB PO SCH (08:23)
[2016-10-04] MEDS: METHYLDOPA 250 MG TAB PO SCH (08:26)
[2016-10-04 08:40] VITALS: BP_DIAS 86; PULSE 72; TEMP 36.4
--- NOTE | 2016-10-08 13:50 | Discharge Summary ---
Discharge Summary Date of Service Oct 08, 2016. Discharge Summary The patient is a 36-year-old white female 001 EDC of 10/06/2016 who presented for repeat section and bilateral tubal ligation. The procedure was done without any complications. She did have bleeding which was controlled with IM Methergine and dilute IV Pitocin. After this, she had an uncomplicated postop course. She was eating regular diet on her first postop day. She was ambulating and voiding without difficulty as well. She remained afebrile throughout her hospital stay. Hemoglobin on admission was 12.7 on her steroid postop day her hemoglobin was 9.1. She was sent home in good condition with prescriptions for Percocet 1 or 2 tablets by mouth every 4 hours when necessary pain and Motrin 600 mg by mouth every 4-6 hours when necessary pain. She is to call for temperature of 101 or higher, heavy vaginal bleeding, burning with urination, increased redness drainage or pain in her incision, or calf tenderness. She is to be seen in the office in 6 weeks for follow-up visit.
== END 2016-10-04 10:55 | disposition home or self-care (01) | DRG 765 ==
LOC: C.LD 06:50 → EDSTATUS 08:00 → C.OBG 16:10
PROVIDERS: ADMIT Obstetrics & Gynecology; ATTEND Obstetrics & Gynecology
PROC: 0UL70ZZ Occlusion of Bilateral Fallopian Tubes, Open Approach (ICD-10-PCS; principal; 2016-10-01 09:00)
PROC: 10D00Z1 Extraction of Products of Conception, Low, Open Approach (ICD-10-PCS; principal; 2016-10-01 09:00)
DX: O34.211 Maternal care for low transverse scar from previous cesarean delivery (principal); O10.92 Unspecified pre-existing hypertension complicating childbirth; O09.523 Supervision of elderly multigravida, third trimester; Z3A.39 39 weeks gestation of pregnancy; Z37.0 Single live birth; Z30.2 Encounter for sterilization; O69.81X0 Labor and delivery complicated by cord around neck, without compression, not applicable or unspecified